=== PATIENT | female | born 2005 | race Caucasian/White ===

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

== ENCOUNTER 2023-01-30 10:26 | Inpatient (IN) | payer OTHER ==
[2023-01-30] MEDS ORDERED: ELECTROLYTE-148 SOLN 1,000 ML IV SCH (11:06)
[2023-01-30] MEDS ORDERED: PROMETHAZINE HCL 25 MG/1 ML VIAL IVPB ONE (11:06)
[2023-01-30] MEDS ORDERED: BUTORPHANOL TARTRATE 2 MG/ML VIAL IVPB ONE (11:06)
[2023-01-30] MEDS ORDERED: PROMETHAZINE HCL 25 MG/1 ML VIAL ONE (11:45)
[2023-01-30] MEDS ORDERED: BUTORPHANOL TARTRATE 2 MG/ML VIAL ONE (11:45)
[2023-01-30 12:37] VITALS: BMI 28.1
[2023-01-30 12:45] LABS: BASO % 0.3 % (0-2.0); EOS % 0.1 % (0-4.5); HEMATOCRIT 39.5 % (32.4-45.2); HEMOGLOBIN 13.4 GM/dL (10.7-15.3); LYMPH % 19.2 % (8-40); MCH 30.3 pg (25.7-33.7); MCHC 33.9 g/dl (32.0-36.0); MEAN CELL VOLUME 89.4 fl (80-96); MEAN PLT VOLUME 8.8 fl (7.5-11.1); MONO % 4.8 % (3.8-10.2); NEUT % 75.6 % (42.8-82.8); PLATELET COUNT 284 10^3/uL (134-434); RBC 4.42 M/mm3 (3.60-5.2); RDW 13.1 % (11.6-15.6); WHITE BLOOD COUNT 13.8 K/mm3 (4.0-10.0)
[2023-01-30 12:55] LABS: INR 0.96 (0.83-1.09); PROTHROMBIN TIME (PATIENT) 11.1 SEC (9.7-13.0)
[2023-01-30] MEDS ORDERED: OXYTOCIN 20 UNITS in 0.9% NS 20 UNIT/1,000 ML INFUS.BAG IV ONE (13:14)
[2023-01-30] MEDS ORDERED: LIDOCAINE HCL 1% PRESERVATIVE FREE - 30ML VIAL ONE (13:14)
[2023-01-30 13:25] LABS: CREATININE 0.7 mg/dL (0.55-1.3)
[2023-01-30] MEDS ORDERED: METHYLERGONOVINE MALEATE 0.2 MG/1 ML AMP IM PRN (14:28)
[2023-01-30] MEDS ORDERED: BENZOCAINE 20% 57 GM BOTTLE TP PRN (14:28)
[2023-01-30] MEDS ORDERED: BISACODYL 10 MG SUPP.RECT RC PRN (14:28)
[2023-01-30] MEDS ORDERED: BENZOCAINE 28 GM HEMORRHOIDAL OINTMENT TP PRN (14:28)
[2023-01-30] MEDS ORDERED: oxyCODONE HCL 5 MG TABLET PO PRN (14:28)
[2023-01-30] MEDS ORDERED: WITCH HAZEL 50% (TUCKS) 40 PAD/JAR PAD TP PRN (14:28)
[2023-01-30] MEDS ORDERED: OXYTOCIN 20 UNITS in 0.9% NS 20 UNIT/1,000 ML INFUS.BAG IV SCH (14:30)
[2023-01-30] MEDS ORDERED: ACETAMINOPHEN 325 MG TABLET (FP) ONE (14:39)
[2023-01-30] MEDS: ACETAMINOPHEN 325 MG TABLET (FP) PO PRN (14:42)
[2023-01-30 14:44] LABS: CORD BASE EXCESS -4.9 mmol/L (0-2); CORD HCO3 20.6 mmHg (20-29); CORD PCO2 40.4 mmHg (30-78); CORD pH 7.326 (7.14-7.44)
[2023-01-30] MEDS: IBUPROFEN 600 MG TABLET (FP) PO PRN (17:26)
[2023-01-31] MEDS: IBUPROFEN 600 MG TABLET (FP) PO PRN ×2 (02:19→13:17)
[2023-01-31] MEDS: ACETAMINOPHEN 325 MG TABLET (FP) PO PRN (05:32)
[2023-01-31 08:45] LABS: BASO % 0.4 % (0-2.0); EOS % 0.6 % (0-4.5); HEMATOCRIT 34.5 % (32.4-45.2); HEMOGLOBIN 11.8 GM/dL (10.7-15.3); LYMPH % 26.8 % (8-40); MCH 30.6 pg (25.7-33.7); MCHC 34.1 g/dl (32.0-36.0); MEAN CELL VOLUME 89.8 fl (80-96); MEAN PLT VOLUME 8.8 fl (7.5-11.1); MONO % 6.6 % (3.8-10.2); NEUT % 65.6 % (42.8-82.8); PLATELET COUNT 250 10^3/uL (134-434); RBC 3.84 M/mm3 (3.60-5.2); RDW 13.3 % (11.6-15.6); WHITE BLOOD COUNT 13.6 K/mm3 (4.0-10.0)
[2023-01-31 14:14] LABS: POC NITRAZINE POS
[2023-01-31] MEDS ORDERED: SENNOSIDES/DOCUSATE COMBO (SENNA PLUS) TABLET (UD) PO PRN (22:00)
[2023-02-01] MEDS: IBUPROFEN 600 MG TABLET (FP) PO PRN (08:22)
[2023-02-01 10:04] VITALS: BP 127/77; PULSE 86; RESP 17; TEMP 97.9
== END 2023-02-01 13:00 | disposition home or self-care (01) | DRG 560 ==
LOC: JLDR 10:26 → J3W 17:04
PROVIDERS: ADMIT Family Medicine; ATTEND Family Medicine
PROC: 10E0XZZ Delivery of Products of Conception, External Approach (ICD-10-PCS; principal; 2023-01-30)
DX: O42.02 Full-term premature rupture of membranes, onset of labor within 24 hours of rupture (principal); Z3A.37 37 weeks gestation of pregnancy; Z37.0 Single live birth
CPT/HCPCS: 36415; 36600; 80048; 82803; 83986-QW; 85025; 85610; 85730; 86780; 86850; 86900; 86901